=== PATIENT | female | born 1960 | race Two or more races ===

== ENCOUNTER 2018-06-14 13:18 | Inpatient (IN) | payer SELFPAY ==
[~2018-06-14] VITALS: Ht 152.4 cm; Wt 54.4 kg
[2018-06-14 14:58] LABS: Urine WBC None Seen /hpf (0 - 5)
[2018-06-14 15:12] LABS: Basophils # (auto) 0.2 uL; Basophils % (auto) 3.9 % (0.0-2.0); Eosinophils # (auto) 0.2 uL; Eosinophils % (auto) 4.1 % (0.0-7.0); Hematocrit 42.6 % (36.0-46.0); Hemoglobin 14.4 g/dL (12.2-16.2); Lymphocytes # (auto) 1.5 uL; Lymphocytes % (auto) 31.4 % (10.0-50.0); Mean Corpuscular Hemoglobin 31.1 pg (28.0-32.0); Mean Corpuscular Hgb Conc. 33.7 g/dL (32.0-36.0); Mean Corpuscular Volume 92.4 fL (80.0-100.0); Monocytes # (auto) 0.3 uL; Monocytes % (auto) 6.4 % (0.0-12.0); Neutrophils # (auto) 2.7 uL; Neutrophils % (auto) 54.2 % (37.0-80.0); Nucleated Red Blood Cells % 0.1 %; Platelet Count (auto) 250 10^3/uL (140-450); Red Blood Cells 4.61 10^6/uL (4.0-5.20); Red Cell Distribution Width 12.8 % (11.8-14.3); White Blood Cell 4.9 10^3/uL (4.4-10.8)
[2018-06-14 15:15] LABS: Urine Bacteria NONE SEEN /hpf (None Seen); Urine Blood Negative /uL (Negative); Urine Mucus FEW (None Seen); Urine Specific Gravity 1.024 (1.001-1.035)
[2018-06-14 15:59] LABS: Albumin 4.2 g/dL (3.4-5.0); Calcium 8.8 mg/dL (8.5-10.1); Potassium 3.8 mmol/L (3.5-5.1)
[2018-06-14 16:05] LABS: Bilirubin, Total 0.4 mg/dL (0.2-1.0); Total Protein 7.6 g/dL (6.4-8.2)
[2018-06-14] MEDS ORDERED: PROMETHAZINE HCL 25 MG/ML 1ML IV PRN (18:00)
[2018-06-14] MEDS ORDERED: NITROGLYCERIN 0.4 MG SL TAB SL PRN (18:00)
[2018-06-14] MEDS ORDERED: ACETAMINOPHEN 500 MG TAB PO PRN (18:00)
[2018-06-14] MEDS ORDERED: HYDROcodone-ACET 5/325MG TAB PO PRN (18:00)
[2018-06-14] MEDS ORDERED: LORazepam 0.5 MG TAB PO PRN (18:00)
[2018-06-14] MEDS ORDERED: MORPHINE SULF INJ 2 MG/ML SYRINGE 1ML IV PRN ×2 (18:00)
[2018-06-14] MEDS ORDERED: ASPirin 81 mg TAB PO ONE (18:00)
[2018-06-14] MEDS ORDERED: TEMAZEPAM 15 MG CAP PO PRN (18:00)
[2018-06-14] MEDS ORDERED: LABETALOL HCL 5 MG/ML ML 20ML VIAL IV PRN (18:00)
[2018-06-14] MEDS ORDERED: LACTULOSE 20Gm/30ML SOLN PO PRN (18:00)
[2018-06-14 18:47] LABS: INR 0.97 (0.9-1.15); Partial Thromboplastin Time 26.9 sec (23.78-33.04); Prothrombin Time 10.4 sec (9.27-12.13)
[2018-06-14] MEDS: SODIUM CHLORIDE 0.9% 1,000 ML IV SCH (18:48)
[2018-06-14 20:15] VITALS: BP 124/67
[2018-06-14] MEDS: ATORVASTATIN 20 MG TAB PO SCH (21:04)
[2018-06-14 21:28] VITALS: BP 124/67
[2018-06-15 04:21] VITALS: BP 82/48
[2018-06-15] MEDS: SODIUM CHLORIDE 0.9% 1,000 ML IV SCH ×2 (06:30→18:55)
[2018-06-15 06:51] LABS: Cholesterol 192 mg/dL (< 200); Triglycerides 92 mg/dL (< 150)
[2018-06-15 06:52] LABS: HDL Cholesterol 64 mg/dL (40-59); LDL Cholesterol 127 mg/dL (< 100)
[2018-06-15 08:13] VITALS: BP 100/61
[2018-06-15 10:07] LABS: Folate (Folic Acid) 20.36 ng/mL (5.38-24)
[2018-06-15 12:22] VITALS: BP 102/66
[2018-06-15] MEDS: ASPirin 81 mg TAB PO SCH (13:06)
[2018-06-15] MEDS: PANTOPRAZOLE 40 MG TAB PO SCH (13:07)
[2018-06-15] MEDS: ENOXAPARIN SOD 40 MG/0.4 ML SYRINGE SC SCH (13:07)
[2018-06-15 16:48] VITALS: BP 99/62
[2018-06-15 21:50] VITALS: BP 119/67
[2018-06-15] MEDS: ATORVASTATIN 20 MG TAB PO SCH (22:31)
[2018-06-16 04:49] VITALS: BP 93/55
[2018-06-16 06:50] LABS: Basophils # (auto) 0 uL; Basophils % (auto) 0.7 % (0.0-2.0); Eosinophils # (auto) 0.2 uL; Eosinophils % (auto) 6.5 % (0.0-7.0); Hematocrit 38.9 % (36.0-46.0); Hemoglobin 13.2 g/dL (12.2-16.2); Lymphocytes # (auto) 1.4 uL; Lymphocytes % (auto) 39.3 % (10.0-50.0); Mean Corpuscular Hemoglobin 31.2 pg (28.0-32.0); Mean Corpuscular Hgb Conc. 33.9 g/dL (32.0-36.0); Monocytes # (auto) 0.3 uL; Monocytes % (auto) 9.6 % (0.0-12.0); Neutrophils # (auto) 1.6 uL; Neutrophils % (auto) 43.9 % (37.0-80.0); Nucleated Red Blood Cells % 0.2 %; Platelet Count (auto) 220 10^3/uL (140-450); Red Blood Cells 4.22 10^6/uL (4.0-5.20); Red Cell Distribution Width 12.8 % (11.8-14.3); White Blood Cell 3.6 10^3/uL (4.4-10.8)
[2018-06-16 07:09] LABS: BUN/Creatinine Ratio 32.8; Calcium 8.1 mg/dL (8.5-10.1); Potassium 3.9 mmol/L (3.5-5.1)
[2018-06-16] MEDS: SODIUM CHLORIDE 0.9% 1,000 ML IV SCH (07:48)
[2018-06-16 09:24] VITALS: BP 117/64
[2018-06-16] MEDS: ASPirin 81 mg TAB PO SCH (10:00)
[2018-06-16] MEDS: PANTOPRAZOLE 40 MG TAB PO SCH (10:00)
[2018-06-16] MEDS: ENOXAPARIN SOD 40 MG/0.4 ML SYRINGE SC SCH (10:00)
[2018-06-16 10:08] VITALS: BP 117/64
[2018-06-16 12:30] VITALS: BP 125/82
== END 2018-06-16 15:10 | disposition home or self-care (01) | DRG 103 ==
LOC: ER 13:27 → TELE 13:28 → TELE-WESTW 20:12
PROVIDERS: ADMIT Internal Medicine; ATTEND Internal Medicine
DX: G43.909 Migraine, unspecified, not intractable, without status migrainosus (principal); G51.0 Bell's palsy; R00.1 Bradycardia, unspecified; K59.00 Constipation, unspecified; F41.9 Anxiety disorder, unspecified; G47.00 Insomnia, unspecified; R47.1 Dysarthria and anarthria; Z82.49 Family history of ischemic heart disease and other diseases of the circulatory system; Z83.3 Family history of diabetes mellitus; Z86.73 Personal history of transient ischemic attack (TIA), and cerebral infarction without residual deficits; Z90.710 Acquired absence of both cervix and uterus
CPT/HCPCS: 36415; 70450; 70551; 71045; 80048; 80053; 80061; 81001; 82550; 82607; 82746; 83735; 84443; 85025; 85610; 85652; 85730; 93005; 93306; 93886; 94761; 96360